=== PATIENT | female | born 1995 | race Caucasian/White ===

== ENCOUNTER 2016-05-20 23:12 | Inpatient (IN) | payer OTHER ==
[~2016-05-20] VITALS: Ht 157.5 cm; Wt 83.0 kg
[2016-05-21] MEDS ORDERED: ONDANSETRON HCL/PF 4 MG/2 ML VIAL ONE ×2 (00:26→07:37)
[2016-05-21] MEDS ORDERED: IV SET PRIMARY 1 EA INFUS.SET MC ONE ×2 (00:26→03:02)
[2016-05-21] MEDS ORDERED: IV NS 0.9% 1,000 ML ONE ×2 (00:26→05:37)
[2016-05-21] MEDS ORDERED: IV NS 0.9% 1,000 ML BAG IV ONE (00:30)
[2016-05-21] MEDS ORDERED: ONDANSETRON HCL/PF 4 MG/2 ML VIAL IVP ONE (00:30)
[2016-05-21 00:54] LABS: BASOPHILS % (AUTO) 0.1 % (0.0-2.0); DIFF TOTAL % 100 %; EOSINOPHILS # (AUTO) 0.1 /CMM (0.0-0.7); EOSINOPHILS % (AUTO) 1.2 % (0.0-6.0); HEMATOCRIT 42 % (33-45); HEMOGLOBIN 14.1 g/dL (11.5-14.8); LYMPHOCYTES # (AUTO) 1.8 /CMM (0.8-4.8); LYMPHOCYTES % (AUTO) 15.4 % (20.0-44.0); MEAN CORPUSCULAR HEMOGLOBIN 29 PG (26.0-33.0); MEAN CORPUSCULAR HGB CONC 34 g/dl (31.0-36.0); MEAN CORPUSCULAR VOLUME 86 fL (82-100); MONOCYTES # (AUTO) 0.3 /CMM (0.1-1.30); MONOCYTES % (AUTO) 2.5 % (2.0-12.0); NEUTROPHILS # (AUTO) 9.6 /CMM (1.8-8.9); NEUTROPHILS % (AUTO) 80.8 % (43.0-81.0); PLATELET COUNT (AUTO) 288 /CMM (150-450); RED BLOOD CELL COUNT(AUTO) 4.88 MIL/uL (4.0-5.2); WHITE BLOOD COUNT (AUTO) 11.9 K/uL (4.3-11.0)
[2016-05-21 01:01] LABS: CALCIUM, SERUM 8.9 mg/dL (8.5-10.1); CREATININE 0.8 mg/dL (0.6-1.3); POTASSIUM 3.8 mmol/L (3.5-5.1)
[2016-05-21 01:08] LABS: ALBUMIN 3.9 g/dL (3.4-5.0); BILIRUBIN,DIRECT 0.1 mg/dL (0.0-0.2); BILIRUBIN,TOTAL 0.5 mg/dL (0.2-1.0); INDIRECT BILIRUBIN 0.4 mg/dL (0.0-1.1); TOTAL PROTEIN, SERUM 7.5 g/dL (6.4-8.2)
[2016-05-21 01:09] LABS: ADD UA MICROSCOPIC YES; KETONES,URINE 1+ (NEGATIVE); LEUKOCYTE ESTERASE ,URINE 2+ (NEGATIVE)
[2016-05-21 01:11] LABS: PREGNANCY TEST URINE QUAL NEGATIVE (NEGATIVE)
[2016-05-21 01:15] LABS: ADD URINE CULTURE YES; RBC,URINE NONE SEEN /HPF (0-2)
[2016-05-21] MEDS ORDERED: MORPHINE SULFATE INJ 2 MG/ML DISP.SYRIN IV ONE (02:30)
[2016-05-21] MEDS ORDERED: MORPHINE SULFATE INJ 4 MG/ML DISP.SYRIN ONE (02:30)
[2016-05-21] MEDS ORDERED: CEFTRIAXONE 1GM BAG (ER ONLY) 1 GM/50 ML PIGGYBACK IV ONE (03:00)
[2016-05-21] MEDS ORDERED: CEFTRIAXONE 1GM BAG (ER ONLY) 50 ML IV ONE (03:02)
[2016-05-21] MEDS ORDERED: IV NS 0.9% 1,000 ML IV PRN ×2 (03:07→04:00)
[2016-05-21] MEDS ORDERED: CEFTRIAXONE 1 G in IV D5W 50 ML IV SCH ×2 (03:30→04:00)
[2016-05-21] MEDS ORDERED: MAGNESIUM HYDROXIDE 30 ML UDC PO PRN ×2 (03:30→04:00)
[2016-05-21] MEDS ORDERED: MORPHINE SULFATE INJ 2 MG/ML DISP.SYRIN IV PRN ×2 (03:30→04:00)
[2016-05-21] MEDS ORDERED: methylPREDNISolone SOD SUCC 40 MG/ML VIAL IV ONE ×2 (03:30)
[2016-05-21] MEDS ORDERED: ZOLPIDEM TARTRATE 5 MG TABLET PO PRN ×2 (03:30→04:00)
[2016-05-21] MEDS ORDERED: ACETAMINOPHEN 325 MG TABLET PO PRN ×2 (03:30→04:00)
[2016-05-21] MEDS ORDERED: MAG HYDROX/AL HYDROX/SIMETH 30 ML UDC PO PRN ×2 (03:30→04:00)
[2016-05-21] MEDS ORDERED: HYDROCODONE/APAP 5/325MG 1 EACH TABLET PO PRN ×2 (03:30→04:00)
[2016-05-21] MEDS ORDERED: ONDANSETRON HCL/PF 4 MG/2 ML VIAL IVP PRN ×2 (03:30→04:00)
[2016-05-21] MEDS ORDERED: Z GUARD REMEDY 2 OZ OINT TP PRN ×2 (03:30→04:00)
[2016-05-21 03:45] VITALS: BP 108/62
[2016-05-21] MEDS ORDERED: methylPREDNISolone SOD SUCC 40 MG/ML VIAL ONE ×2 (04:29→07:30)
[2016-05-21] MEDS ORDERED: IV SET PRIMARY PUMP SET 1 EA INFUS.SET MC ONE (05:38)
[2016-05-21] MEDS ORDERED: PANTOPRAZOLE 40 MG VIAL ONE (07:30)
[2016-05-21] MEDS ORDERED: INFL100V IV (08:35)
[2016-05-21] MEDS ORDERED: LOPE2CAP40 PO (08:35)
[2016-05-21] MEDS ORDERED: NAPR375T3 PO (08:35)
[2016-05-21] MEDS ORDERED: LEVO1TAB PO (08:37)
[2016-05-21] MEDS ORDERED: PANTOPRAZOLE 40 MG VIAL IV SCH ×2 (09:00)
[2016-05-21] MEDS ORDERED: methylPREDNISolone SOD SUCC 40 MG/ML VIAL IV SCH ×2 (09:00)
[2016-05-21 09:12] VITALS: BP 121/70
[2016-05-21 16:00] VITALS: BP 112/45
== END 2016-05-21 18:00 | disposition home or self-care (01) | DRG 387 ==
LOC: ER 23:14 → MED 05-21 04:12
PROVIDERS: ADMIT Family Medicine; ATTEND Family Medicine
DX: K51.90 Ulcerative colitis, unspecified, without complications (principal); Z88.2 Allergy status to sulfonamides
CPT/HCPCS: 36415; 80048-TC; 80076-TC; 81000-TC; 83690-TC; 84703-TC; 85025-TC; 87081-TC; 87086-TC; A4606; C9113; J0696; J2270; J2405; J2920; J7030; J7060; Z7610